=== PATIENT | female | born 2000 | race African-American/Black ===

== ENCOUNTER 2025-04-13 04:20 | Inpatient (IN) | payer MEDICAID ==
[2025-04-13] VITALS (18 sets, daily range): BP systolic 85–117; BP diastolic 45–76; PULSE 53–89; RESP 15–20; TEMP 97.4–98.5; O2SAT 98–100
[~2025-04-13] VITALS: Ht 157.5 cm; Wt 65.8 kg
[2025-04-13] MEDS ORDERED: MORPHINE SULF PF 5 MG/10 ML VIAL ONE (05:00)
[2025-04-13] MEDS ORDERED: KETOROLAC TROMETH 30 MG/ML 1ML VIAL ONE (05:00)
[2025-04-13] MEDS ORDERED: GLYCOPYRROLATE 0.2 MG/ML 1ML VIAL ONE (05:00)
[2025-04-13] MEDS ORDERED: fentaNYL CITRATE 100 MCG/2 ML VL ONE (05:00)
[2025-04-13] MEDS ORDERED: ONDANSETRON HCL 4 MG/2 ML VIAL ONE (05:00)
[2025-04-13] MEDS ORDERED: BUPIVACAINE/DEXTROSE MPF 0.75% 2 ML AMP IT ONE (05:01)
[2025-04-13 05:14] LABS: Hematocrit 31.6 % (36.0-46.0); Hemoglobin 10.6 g/dL (12.2-16.2); Mean Corpuscular Hemoglobin 30.3 pg (28.0-32.0); Mean Corpuscular Volume 90.6 fL (80.0-100.0); Nucleated Red Blood Cells % 0.1 %
--- NOTE | 2025-04-13 05:17 | DVHHP2 ---
OB CC & HPI Date Date of Admission: Apr 13, 2025 Patient Identification: : 4 Para: 2 EDC: Apr 16, 2025 EGA: 39WKS Chief Complaints: Reason for admission: active labor Indication for : desires repeat Admission Nurse Assessment Rev: No History of Present Complaints PT IS ADMITTED FOR ACTIVE LABOR,SHE WAS SUPPOSED TO HAVE A RCS ON HER DUE DATE IN [place].PT APPERS TO HAVE LIMITED CARE .SHE HAS ROHAN IN HER INCISIONS DUE TO FEAR OF DEHESCINES SHE STATES Past Medical History Cardiac: No pertinent Hx Pulmonary: No pertinent Hx Central Nervous System: No pertinent Hx GI: No pertinent Hx Hemotology/Oncology: No pertinent Hx Hepatobiliary: No pertinent Hx Psychiatric: No pertinent Hx Musculoskeletal: No pertinent Hx Rheumotologic: No pertinent Hx Infectious Disease: No peritnent Hx ENT: No pertinent Hx Renal/: No pertinent Hx Endocrine: No pertinent Hx Dermatology: No pertinent Hx Past Surgical History: OB History OB History Care: Limited Care Ultrasounds: No ultrasounds Obstetrical Complications: None Medical Complications: None Allergies: Coded Allergies: NO KNOWN ALLERGIES (Unverified , 04/13/25) Current Medications Current Medications Medications (Trade) Dose Ordered Sig/Aurora Route PRN Reason Start Time Stop Time Status Last Admin Lactated Ringer's 1,000 ml @ 125 mls/hr Q8H IV 04/13/25 04:45 Family & Social History Family/Social History Blood Type: Unknown Rubella: unknown RPR/VDRL: Unknown GBS Status: Unknown HBsAG: Unknown Review of Systems Constitutional: No symptom reported Ears, Nose, & Throat: No symptom reported Eyes: No symptom reported Pulmonary/Respiratory: No symptom reported Cardiovascular: No symptom reported Gastrointestinal: No symptom reported Genitourinary: No symptom reported Musculoskeletal: No symptom reported Skin: No symptom reported Psychiatric: No symptom reported Endocrine: No symptom reported Hemotologic/Lymphatic: No symptom reported OB Admission Exam Physical Exam HEENT: TMs Normal, Fontanelles Normal, Nasal Mucosa Normal, Eyes non-injected, Oropharynx Normal, PERRLA, Moist Membranes, EOMI Heart: Rhythm Normal Lungs: Clear Abdomen: Non tender Extremities: Normal Reflexes: Normal Cervical Dilatation: 3cm Effacement: 50% Station: -2 Membranes: Intact Heart Rate: 130's Accelerations: Accelerations Present Decelerations: No Decelerations Short Term Variability: Present Retirement Variability: Average (6-25) Contractions on Admission: < 5 Minutes Apart Intensity: Moderate OB Plan Plan Admitting Diagnosis: Repeat IN LABOR LIMITED CARE PREVIOUS CSX2 Plan: Section Other Plan: INFORMED CONSENT OBTAINED ,RISKS AND COMPLICATION OF RCS D/W PT. RISK OF INFECTION,BLEEDING,PE,DVT NEED FOR FURTHER SURGERY D/W PT. ALL QUESTIONS ANSWERED PT FULLY UNDERSTANDS WISHES TO PROCEED WITH RCS Visit Coding OBGYN Date of Service: Apr 13, 2025 Billing Provider: YASH MG DO RESIDENTIAL REAL ESTATE APPRAISER Common Visit Codes: 10960-[id number] INP/OBS CARE (HIGH), [id number] INP/OBS CARE(LOW) RESIDENTIAL REAL ESTATE APPRAISER Procedure Codes: 77679-43- NON-STRESS TEST YASH MG DO Apr 13, 2025 05:17
[2025-04-13 05:21] LABS: Urine Protein, UAD TRACE (Negative)
[2025-04-13 05:26] LABS: Amphetamine Screen, Urine Neg (NEGATIVE); Barbiturate Scree,Urine Neg (NEGATIVE); Benzodiazephine Screen, Urine Neg (NEGATIVE); Cannabinoid Screen, Urine Pos (NEGATIVE); Cocaine Screen, Urine Neg (NEGATIVE); Opiate Scree,Urine Neg (NEGATIVE); Phencyclidine Screen, Urine Neg (NEGATIVE)
[2025-04-13 05:27] LABS: Alanine Aminotransferase 12 U/L (7-40); Albumin 4.0 g/dL (3.2-4.8); Anion Gap 11 (5-15); BUN/Creatinine Ratio 10.3 (10.0-20.0); Calcium 9.0 mg/dL (8.7-10.4); Carbon Dioxide 25 mmol/L (20-31); Chloride 104 mmol/L (98-107); Glucose 85 mg/dL (74-106); Potassium 3.7 mmol/L (3.5-5.1); Sodium 140 mmol/L (136-145); Total Protein 7.0 g/dL (5.7-8.2)
[2025-04-13 05:28] LABS: Bilirubin, Total 0.4 mg/dL (0.2-1.0)
[2025-04-13 05:29] LABS: Alkaline Phosphatase 262 U/L (46-116); Blood Urea Nitrogen 6 mg/dL (9-23)
[2025-04-13 05:30] LABS: INR 0.86 (0.9-1.15); Partial Thromboplastin Time 26.2 SEC (24.5-34.5); Prothrombin Time 9.3 sec (9.3-11.8)
[2025-04-13] MEDS ORDERED: ONDANSETRON HCL 4 MG/2 ML VIAL IV PRN ×3 (05:30→07:00)
[2025-04-13] MEDS ORDERED: GUM (CHEWING) 1 GUM CHEW CHEW ONE (05:30)
--- NOTE | 2025-04-13 05:32 | DVH ---
EXAM: US OB ULTRASOUND COMP GTR 14 WKS HISTORY: Limited PNC COMPARISON: None TECHNIQUE: Transabdominal limited 3rd trimester OB ultrasound was performed. FINDINGS/IMPRESSION: 1. Single intrauterine in vertex position with heart rate 128 BPM. 2. Estimated gestational age per current sonographic measurements is 35 weeks 5 days with estimated due date 05/13/2025. 3. Estimated weight 2767 g consistent with 4.2 percentile. 4. Amniotic fluid index 8.8 cm, which is within the normal range. 5. The placenta is fundal, grade 3, without evidence of placenta previa or abruption.
[2025-04-13] MEDS ORDERED: METOCLOPRAMIDE HCL 5MG/ml INJ 2ml VIAL ONE (06:06)
[2025-04-13] MEDS ORDERED: NALBUPHINE HCL 10 MG/1ml INJECTION SUBCUT ONE (07:00)
[2025-04-13] MEDS ORDERED: HYDROmorphone HCL 2 MG/ML VL/or syr IV PRN ×2 (07:00)
[2025-04-13] MEDS ORDERED: diphenhydrAMINE HCL 50 MG/1 ML VL IV PRN (07:00)
[2025-04-13] MEDS ORDERED: MEPERIDINE HCL (25 MG/ML) 1ML VIAL IV PRN (07:00)
[2025-04-13] MEDS ORDERED: NALOXONE HCL 0.4 MG/ML VIAL IV PRN (07:00)
[2025-04-13] MEDS ORDERED: ACETAMINOPHEN IV 1000 MG/100ML (10MG/ML) IV PRN ×2 (07:00→08:15)
[2025-04-13] MEDS: LACT. RINGERS/OXYTOCIN 20UNITS 1,000 ML IV ONE (07:15)
--- NOTE | 2025-04-13 07:50 | DVHOP2 ---
Operative Report DATE OF OPERATION:04/13/25 PREOPERATIVE DIAGNOSES: [limited care,hx of syphilis ,previous csx2,desires rcs active labor,drug use] POSTOPERATIVE DIAGNOSES: [same,meconium,nuchal cord] OPERATION PERFORMED: Repeat Section FINDINGS: [b] infant. Apgars of [8] and [9]. Weight [6lbs] [good] crying tone. [clear] amniotic fluid. Placenta and three-vessel were intact. Normal tubes, ovaries, and uterus. Moderate scar tissue. SURGEON: Sola Alvares D.O. MARKETING OPERATIONS ANALYST: surfacing technician, [jose g]. ANESTHESIOLOGIST: [murray]Shantal ANESTHESIA: [Duramorph spinal, regional]. COMPLICATIONS: [none]. ESTIMATED BLOOD LOSS: [500] mL. BLOOD PRODUCTS USED: [none]. PROCEDURE IN DETAIL: The patient was taken to the operating room, placed in sitting position, and spinal was placed without difficulty. She was then prepped and draped in a sterile fashion. A low Pfannenstiel incision was made scapel. At this point, it was carried down through the rectus fascia, nicked in the midline, and carried laterally. The rectus muscles were in the midline. Peritoneum was identified and entered with sharp dissection. Vesicouterine peritoneum was taken off the lower uterine segment. A lower uterine transverse incision was made with a scalpel down the chorionic membranes, ruptured with hemostat. Infant was in vertex position. One hand was placed in the lower uterine segment. Head was essentially delivered spontaneously. Nose and mouth were bulb suctioned. Shoulders and torso were delivered without difficulty. Again, pharynx, nose, and mouth were re-suctioned with vigorous crying tone. Cord was cut. The infant was handed off to the awaiting Respiratory. At this point, umbilical blood sample was taken. Placenta was removed. Uterus was exteriorized, cleared off all clots and debris, irrigated, and closed with a double layer of 0-Vicryl. The vesicouterine peritoneum was incorporated into this closure. We had complete hemostasis. EBL was [500] mL. The instrument, lap, and sponge count was correct x1. The uterus was placed back into the peritoneum. The peritoneal cavity was re-inspected and the lower uterine incision with good hemostasis. We closed the peritoneum with running continuous of 2-0 Vicryl. The Rectus Fascia was closed with 0-PDS, running continuous, looped-0. The skin was closed undermined, irrigated, and close with elsie. CONDITION: The patient's and the infant's condition is stable and but guarded. Visit Coding OBGYN Date of Service: Apr 13, 2025 Billing Provider: SOLA ALVARES DO FERRYBOAT CAPTAIN Common Visit Codes: [id number] OBS CARE (HIGH) FERRYBOAT CAPTAIN Procedure Codes: [id number] DELIVERY ONLY SOLA ALVARES DO Apr 13, 2025 07:50
--- NOTE | 2025-04-13 07:57 | POSTOP ---
Post-Operative Note Post-Operative Note Preop Diagnosis term preg desires rcs,previous cs x2,limited pnc,hx of syphilis,drug use in preg Postop Diagnosis: same,meconium,nuchasl cord Operation performed rcs Specimen baby boy,apgars 8-9,nuchal cord,mec Anesthesia: Regional Anesthesiologist: dara Blood Loss(fluid mgmt) 500ml Surgeon Yash Alvares Manufacturing Inspector jose g Implant na Complications & Mgmt none Date 04/13/25 Time 07:51 Visit Coding OBGYN Date of Service: Apr 13, 2025 Billing Provider: YASH ALVARES DO INDUSTRIAL WORKERS Common Visit Codes: [id number] OBS CARE (HIGH) IND[employer]RIAL WORKERS Procedure Codes: [id number] DELIVERY ONLY YASH ALVARES DO Apr 13, 2025 07:57
[2025-04-13] MEDS ORDERED: HYDR-4072 PO (08:02)
[2025-04-13] MEDS ORDERED: CEPH500T PO (08:02)
[2025-04-13] MEDS ORDERED: DOCU-94 PO (08:02)
[2025-04-13] MEDS ORDERED: IBUP-1456 PO (08:02)
[2025-04-13 08:23] LABS: Protein, Urine 31.1 mg/dL (1-14)
[2025-04-13] MEDS: LACTATED RINGER'S 1,000 ML IV SCH (08:51)
[2025-04-13 10:15] LABS: Hepatitis C Antibody Negative (Negative)
[2025-04-13] MEDS: ceFAZolin 1GM/50ML 50 ML IV SCH (14:07)
[2025-04-13 21:47] LABS: Hematocrit 25.6 % (36.0-46.0); Hemoglobin 8.4 g/dL (12.2-16.2); Mean Corpuscular Hemoglobin 30.2 pg (28.0-32.0); Mean Corpuscular Volume 92.4 fL (80.0-100.0); Nucleated Red Blood Cells % 0.0 %
[2025-04-14] VITALS (12 sets, daily range): BP systolic 84–122; BP diastolic 48–77; PULSE 61–91; RESP 16–18; TEMP 97.9–98.4; O2SAT 97–100
[2025-04-14] MEDS: KETOROLAC TROMETH 30 MG/ML 1ML VIAL IV PRN (00:55)
[2025-04-14] MEDS: LACTATED RINGER'S 1,000 ML IV ONE (02:33)
[2025-04-14] MEDS: ceFAZolin 2 GM/D5W50ml 50 ML IV ONE (02:35)
[2025-04-14] MEDS ORDERED: IBUPROFEN 800 MG TAB PO PRN (04:00)
[2025-04-14] MEDS: HYDROcodone-ACET 5/325MG TAB PO PRN ×2 (05:31→11:32)
[2025-04-14] MEDS: SIMETHICONE 80 MG CHEWABLE TABLET PO SCH (05:31)
[2025-04-14 06:13] LABS: Nucleated Red Blood Cells % 0.0 %
[2025-04-14 06:15] LABS: Hematocrit 22.8 % (36.0-46.0); Hemoglobin 7.6 g/dL (12.2-16.2); Mean Corpuscular Hemoglobin 30.0 pg (28.0-32.0); Mean Corpuscular Volume 89.7 fL (80.0-100.0)
--- NOTE | 2025-04-14 07:24 | DVHPN2 ---
Progress Note Date Seen: Apr 14, 2025 Subjective S: Lochia minimal. Clear liquid diet well tolerated. Ambulating and voiding well w/o feeling dizzy or lightheaded. Pain relieved with IV analgesics. Not Passing flatus and no BM yet. Formula feeding w/o problem vital signs Vital Sign Date Time Temp Pulse Resp B/P (MAP) Pulse Ox O2 Delivery O2 Flow Rate FiO2 04/14/25 05:12 66 98 04/14/25 03:00 98.4 16 114/59 (77) 98.4 04/13/25 19:00 Room Air 04/13/25 06:43 0 99 Total Intake and Output 04/13/25 04/13/25 04/14/25 15:00 23:00 07:00 Output Total 250 ml 800 ml 2500 ml Balance -250 ml -800 ml -2500 ml medications Current Medications Medications Dose Ordered Sig/Aurora Route Start Time Stop Time Status Last Admin Dose Admin Lactated Ringer's 1,000 ml @ 125 mls/hr Q8H IV 04/13/25 04:45 04/13/25 15:38 125 MLS/HR Diphenhydramine HCl 25 mg Q4HP PRN IV 04/13/25 07:00 Ondansetron HCl 4 mg Q4HP PRN IV 04/13/25 07:00 Ketorolac Tromethamine 30 mg Q6HP PRN IV 04/13/25 07:00 04/18/25 06:59 04/14/25 00:55 30 MG Acetaminophen 1,000 mg Q8HPRN PRN IV 04/13/25 08:15 04/14/25 06:01 Cefazolin Sodium 50 ml @ 100 mls/hr Q8HR IV 04/13/25 14:00 04/14/25 05:31 100 MLS/HR Docusate Sodium 100 mg Q12HR PO 04/14/25 10:00 Dimethicone 80 mg QID PO 04/14/25 06:00 Ibuprofen 800 mg Q8HP PRN PO 04/14/25 04:00 Acetaminophen/ Hydrocodone Bitart 1 tab Q4HPRN PRN PO 04/14/25 04:00 Acetaminophen/ Hydrocodone Bitart 2 tab Q4HPRN PRN PO 04/14/25 04:00 laboratory and microbiology Laboratory Tests 04/13/25 04:30 Test 04/13/25 04:30 Range/Units Serum Glucose 85 74-106 mg/dL Objective A&O x3 NAD. Afebrile, VSS Chest: heart and lung sounds normal. Breasts: Nipples intact w/o cracks or soreness Abdomen: normal BS, soft, non-tender, no rebound or guarding, fundus firm @ U- 1, Lower abdominal Incision site with dressing, same clean, dry and intact. Extremities: no edema or tenderness Lochia - minimal Assessment/Plan 24yo now Post operative & ppd # 1 s/p Repeat Section doing well. Blood Type: O Rh: Positive Formula feeding Rubella Immune Pain control with medications Bowel regimen: Increase fluid intake and fiber in diet, Laxative PRN PP BCM Plan: undecided Plan discussed with: Patient Visit Coding OBGYN Date of Service: Apr 14, 2025 Billing Provider: ACE TRAORE CNM TELEPHONE ANSWERING SERVICE OPERATOR Common Visit Codes: [id number] INP/OBS CARE(HIGH) ACE TRAORE CNM Apr 14, 2025 07:24
[2025-04-14] MEDS: DOCUSATE SOD 100 MG CAP PO SCH (10:00)
[2025-04-15] MEDS: FERROUS SULFATE 325mg EC TAB PO SCH (00:24)
[2025-04-15 02:06] LABS: Chlamydia Trachomatis, NAA Negative (Negative); Neisseria gonorrhoeae, NAA Negative (Negative)
[2025-04-15 03:19] VITALS: BP 128/90; PULSE 81; RESP 16; TEMP 98.1; O2SAT 99
--- NOTE | 2025-04-15 03:47 | DVHPN2 ---
Progress Note Date Seen: Apr 15, 2025 Subjective S: Lochia minimal. Advancing diet well tolerated. Ambulating and voiding well w/o feeling dizzy or lightheaded. Pain relieved with oral analgesics. Not Passing flatus and no BM yet. Formula feeding w/o problem Desires and Requests to be discharged today vital signs Vital Sign Date Time Temp Pulse Resp B/P (MAP) Pulse Ox O2 Delivery O2 Flow Rate FiO2 04/15/25 03:19 98.1 81 16 128/90 (103) 99 98.1 04/14/25 19:00 Room Air Total Intake and Output 04/14/25 04/14/25 04/15/25 15:00 23:00 07:00 Output Total 550 ml Balance -550 ml medications Current Medications Medications Dose Ordered Sig/Aurora Route Start Time Stop Time Status Last Admin Dose Admin Lactated Ringer's 1,000 ml @ 125 mls/hr Q8H IV 04/13/25 04:45 04/13/25 15:38 125 MLS/HR Diphenhydramine HCl 25 mg Q4HP PRN IV 04/13/25 07:00 Ondansetron HCl 4 mg Q4HP PRN IV 04/13/25 07:00 Ketorolac Tromethamine 30 mg Q6HP PRN IV 04/13/25 07:00 04/18/25 06:59 04/14/25 00:55 30 MG Cefazolin Sodium 50 ml @ 100 mls/hr Q8HR IV 04/13/25 14:00 04/14/25 23:18 100 MLS/HR Docusate Sodium 100 mg Q12HR PO 04/14/25 10:00 04/14/25 16:51 100 MG Dimethicone 80 mg QID PO 04/14/25 06:00 04/15/25 03:01 80 MG Ibuprofen 800 mg Q8HP PRN PO 04/14/25 04:00 Acetaminophen/ Hydrocodone Bitart 1 tab Q4HPRN PRN PO 04/14/25 04:00 04/14/25 06:41 1 TAB Acetaminophen/ Hydrocodone Bitart 2 tab Q4HPRN PRN PO 04/14/25 04:00 04/15/25 03:01 2 TAB Ferrous Sulfate 325 mg DAILY PO 04/15/25 00:00 04/15/25 00:24 325 MG laboratory and microbiology Laboratory Tests 04/14/25 05:49 04/13/25 04:30 Test 04/13/25 04:30 Range/Units Serum Glucose 85 74-106 mg/dL Objective O: A&O x3 NAD. Afebrile, VSS Chest: heart and lung sounds normal. Breasts: Nipples intact w/o cracks or soreness Abdomen: normal BS, soft, non-tender, no rebound or guarding, fundus firm @ U- 1, Lower abdominal Incision site with dressing on, same clean, dry and intact. No edema, erythema or induration Extremities: no edema or tenderness Lochia - minimal Assessment/Plan A/P: 24yo now Post operative & ppd #2 s/p Repeat Section doing well. Anemia h/o Syphilis h/o Drug use in Blood Type: O Rh: Positive Formula feeding Rubella Immune Pain control with oral medications Bowel regimen: Increase fluid intake and fiber in diet, Laxative PRN PP BCM Plan: Undecided, contemplating contraceptive patch Discharge plan: May discharge home later today if condition remains stable Plan discussed with: Patient Visit Coding OBGYN Date of Service: Apr 15, 2025 Billing Provider: ACE TRAORE CNM LOCOMOTIVE OPERATOR HELPER Common Visit Codes: [id number] INP/OBS CARE(HIGH) ACE TRAORE CNM Apr 15, 2025 03:47
--- NOTE | 2025-04-15 04:15 | DVHDS2 ---
Discharge Summary Date of Admission Apr 13, 2025 at 04:20 Date of Discharge: Apr 15, 2025 Admitting Diagnosis <> IUP at 39w 4d <> Labor; desired Repeat C- section <> h/o C- Section x2; Claudio from last Section still in place <> h/o Syphilis <> Drug use in <> Late and Limited Care with [facility]; per pt 4 visits, care started after 6th month of Wounds: Low abdominal incision clean dry & intact w/o any sign of infection Labs/Diagnostic Data: Laboratory Results Test 04/14/25 10:02 04/14/25 05:49 04/13/25 16:26 04/13/25 04:30 White Blood Count 14.0 10^3/uL (4.4-10.8) Red Blood Count 2.54 10^6/uL (4.0-5.20) Hemoglobin 7.6 g/dL (12.2-16.2) Hematocrit 22.8 % (36.0-46.0) Mean Corpuscular Volume 89.7 fL (80.0-100.0) Mean Corpuscular Hemoglobin 30.0 pg (28.0-32.0) Mean Corpuscular Hemoglobin Concent 33.4 g/dL (32.0-36.0) Red Cell Distribution Width 14.3 % (11.8-14.3) Platelet Count 176 10^3/uL (140-450) Mean Platelet Volume 8.4 fL (6.9-10.8) Neutrophils (%) (Auto) 81.2 % (37.0-80.0) Lymphocytes (%) (Auto) 11.7 % (10.0-50.0) Monocytes (%) (Auto) 7.0 % (0.0-12.0) Eosinophils (%) (Auto) 0.0 % (0.0-7.0) Basophils (%) (Auto) 0.1 % (0.0-2.0) Neutrophils # (Auto) 11.4 10 ^3/uL (1.6-8.6) Lymphocytes # (Auto) 1.6 10 ^3/uL (0.4-5.4) Monocytes # (Auto) 1.0 10 ^3/uL (0-1.3) Eosinophils # (Auto) 0 10 ^3/uL (0-0.8) Basophils # (Auto) 0 10 ^3/uL (0-0.2) Nucleated Red Blood Cells 0.0 % Miscellaneous Referred Test ( Tmp Sent to [facility] Rapid Plasma Reagin Nonreactive (NONREACTIVE) Treponema pallidum Antibody Reactive (Negative) Prothrombin Time 9.3 sec (9.3-11.8) Prothrombin Time INR 0.86 (0.9-1.15) Activated Partial Thromboplast Time 26.2 SEC (24.5-34.5) Urine Color Light-yellow (Yellow) Urine Clarity Clear (Clear) Urine pH 7.5 (5.0-9.0) Urine Specific [place] 1.018 (1.001-1.035) Urine Protein Trace (Negative) Urine Ketones Negative (Negative) Urine Blood 2+ /uL (Negative) Urine Nitrite Negative (Negative) Urine Bilirubin Negative (Negative) Urine Urobilinogen 2 mg/dL (Negative) Urine Leukocyte Esterase Negative /uL (Negative) Urine RBC 175 /hpf (0 - 4) Urine Microscopic WBC < 1 /HPF (0-5) Urine Squamous Epithelial Cells Few /hpf (<5) Urine Bacteria None seen /hpf (None Seen) Urine Creatinine 106.74 mg/dL (30.0-125.0) Urine Protein/Creatinine Ratio 0.29 Urine Glucose Normal mg/dL (Normal) Urine Total Protein 31.1 mg/dL (1-14) Sodium Level 140 mmol/L (136-145) Potassium Level 3.7 mmol/L (3.5-5.1) Chloride Level 104 mmol/L (98-107) Carbon Dioxide Level 25 mmol/L (20-31) Anion Gap 11 (5-15) Blood Urea Nitrogen 6 mg/dL (9-23) Creatinine 0.58 mg/dL (0.550-1.02) Glomerular Filtration Rate Calc 130 mL/min (>90) BUN/Creatinine Ratio 10.3 (10.0-20.0) Serum Glucose 85 mg/dL (74-106) Hemoglobin A1c 4.9 % A1C (<5.7) Uric Acid 4.7 mg/dL (3.1-7.8) Calcium Level 9.0 mg/dL (8.7-10.4) Total Bilirubin 0.4 mg/dL (0.2-1.0) Aspartate Amino Transferase (AST) 25 U/L (13-40) Alanine Aminotransferase (ALT) 12 U/L (7-40) Alkaline Phosphatase 262 U/L (46-116) Total Protein 7.0 g/dL (5.7-8.2) Albumin 4.0 g/dL (3.2-4.8) Urine Opiates Screen Neg (NEGATIVE) Urine Fentanyl Screen Neg (NEGATIVE) Urine Barbiturates Screen Neg (NEGATIVE) Urine Phencyclidine Screen Neg (NEGATIVE) Urine Amphetamines Screen Neg (NEGATIVE) Urine Benzodiazepines Screen Neg (NEGATIVE) Urine Cocaine Screen Neg (NEGATIVE) Urine Cannabinoids Screen Pos (NEGATIVE) Chlamydia trachomatis (UDAY) Negative (Negative) Hepatitis B Surface Antibody Negative (Negative) Hepatitis C Antibody Negative (Negative) HIV (1&2) Antibody Negative (Negative) Neisseria gonorrhoeae (UDAY) Negative (Negative) Rubella Antibody Positive Other Laboratory Tests 04/14/25 05:49 04/13/25 04:30 Brief Hx & Hospital Course: Ms. Astudillo was admitted on 04/13/25 at 39w 4d EGA in labor but desired repeat Section due to h/o section x2. Patient also has h/o syphilis, drug use in , late and limited care. She had repeat section on 04/13/25, meconium stained amniotic fluid and nuchal cord noted. ( See Operation Note for details) Severe Anemia noted but patient is asymptomatic; meeting milestones w/o any problem or any other complication. Operations or Procedures <> Repeat Section <> Removal of Claudio from prior section Condition at Discharge: Stable Final Diagnosis/Problems List <> same <> meconium <> nuchal cord <> Anemia Discharge Disposition: Home Discharge Instruct/Medications Diet: Regular Diet comment: Routine regular diet rich in fiber, protein, iron and vitamin C with adequate fluid intake Activity: See Comment Activity comment: Advance as tolerated. Balance activities with rest periods. No heavy lifting, pushing or straining. Pelvic rest x 6weeks Follow Up/Referral: Follow up with OB Provider in 1 week Medications: Docusate Sodium, Hydrocordone-Acetaminophen Ibuprofen, Vitamin and iron Scheduled Cephalexin Monohydrate (Cephalexin), 500 MG PO QID Docusate Sodium (Colace), 1 CAP PO BID Scheduled PRN Hydrocodone-Acetaminophen (Hydrocodone/Acetaminophen 10-325 mg), 1 TAB PO Q6HPRN PRN Ibuprofen (Ibuprofen), 800 MG PO TID PRN Discharge Statement: Post operative and self care instructions given. self care instructions given. emergency signs and symptoms including but not limited to pre-eclampsia precautions and signs of infection, PPH & of PPD reviewed with patient. "Patient was advised to return to the ER or call 911 if any headaches, dizziness, shortness of breath, chest pain, abdominal pain, bleeding, fevers, or worsening of medical condition. Patient was counseled about treatment plan, medications, possible side effects, patientverbalized understanding. All questions were answered to the best of my ability. This discharge took greater then 30 minutes in planning, reviewing documentation, counseling the patient, and discussing with other team members." ASSESSMENT ASSESSMENT Hospital Course Ms. Astudillo was admitted on 04/13/25 at 39w 4d EGA in labor but desired repeat Section due to h/o section x2. Patient also has h/o syphilis, drug use in , late and limited care. She had repeat section on 04/13/25, meconium stained amniotic fluid and nuchal cord noted. ( See Operation Note for details) Severe Anemia noted but patient is asymptomatic; meeting milestones w/o any problem or any other complication. Assessment same, meconium, nuchal cord, Anemia Visit Coding OBGYN Date of Service: Apr 15, 2025 Billing Provider: ACE TRAORE CNM DRAGLINE OPERATOR Common Visit Codes: [id number] DISCH DAY >30MIN ACE TRAORE CNM Apr 15, 2025 04:15
[2025-04-15] MEDS ORDERED: BISACODYL 10 MG RECT SUPP PR PRN (06:15)
[2025-04-15 07:19] VITALS: BP 124/82; PULSE 79; RESP 16; TEMP 98.2; O2SAT 99
== END 2025-04-15 11:15 | disposition home or self-care (01) | DRG 540 ==
LOC: LDRP 04:20
PROVIDERS: ADMIT Obstetrics & Gynecology; ATTEND Obstetrics & Gynecology
PROC: 10D00Z1 Extraction of Products of Conception, Low, Open Approach (ICD-10-PCS; principal; 2025-04-13 05:23)
DX: O69.81X0 Labor and delivery complicated by cord around neck, without compression, not applicable or unspecified (principal); O34.211 Maternal care for low transverse scar from previous cesarean delivery; Z37.0 Single live birth; O77.0 Labor and delivery complicated by meconium in amniotic fluid; O90.81 Anemia of the puerperium; Z3A.39 39 weeks gestation of pregnancy
CPT/HCPCS: 36415; 59025; 76805; 80053; 80307; 81001; 82570; 83036; 84156; 84550; 85025; 85610; 85730; 86592; 86703; 86706; 86762; 86780; 86803; 86850; 86900; 86901; 94760; 94762; 96360; 96361; G0378; J1885; J2405; J2590